=== PATIENT | female | born 1990 | race Caucasian/White ===

== ENCOUNTER 2021-10-26 10:23 | Emergency (ER) | payer OTHER ==
[~2021-10-26] VITALS: Ht 162.6 cm; Wt 92.7 kg
[2021-10-26 11:25] LABS: BASO # 0.02 K/mm3 (0.02-0.10); EOS # 0.31 K/mm3 (0.04-0.40); EOS % 2.8 % (1.0-5.0); HEMATOCRIT 46.6 % (37.0-47.0); HEMOGLOBIN 15.2 g/dL (12.5-16.0); LYMPH# 1.95 K/mm3 (1.50-4.00); MEAN CELL VOLUME 87 fl (78-100); MEAN CORPUSCULAR HEMOGLOBIN 28 pg (27-31); MEAN CORPUSCULAR HGB CONC 33 g/dL (33-37); MEAN PLATELET VOLUME 9.7 fl (7.4-10.4); MONO # 0.94 K/mm3 (0.20-0.80); NEU # 7.85 K/mm3 (1.40-6.50); PLATELET COUNT 303 K/mm3 (130-400); RED BLOOD COUNT 5.37 M/mm3 (4.10-5.30); WHITE BLOOD COUNT 11.1 K/mm3 (4.8-10.8)
[2021-10-26 11:36] LABS: ALBUMIN 4.3 g/dL (3.5-5.0)
[2021-10-26 11:39] LABS: TOTAL PROTEIN 8.2 g/dL (6.4-8.3)
[2021-10-26 11:41] LABS: TOTAL BILIRUBIN 0.3 mg/dL (0.2-1.2)
[2021-10-26 12:38] LABS: PH-URINE 6.5 (5.0 - 8.0); URINE APPEARANCE CLEAR; URINE BILIRUBIN NEGATIVE (NEGATIVE); URINE BLOOD NEGATIVE (NEGATIVE); URINE COLOR YELLOW; URINE GLUCOSE NEGATIVE (NEGATIVE); URINE KETONE NEGATIVE (NEGATIVE); URINE LEUKOCYTE ESTERASE NEGATIVE (NEGATIVE); URINE NITRATE NEGATIVE (NEGATIVE); URINE PROTEIN(semi-quant) TRACE (NEGATIVE); URINE UROBILINOGEN NORMAL (NORMAL); URINE WBC 0-1 /hpf (0-3)
[2021-10-26 14:06] VITALS: BP 125/80
== END 2021-10-26 14:00 | disposition home or self-care (01) ==
LOC: ED 10:23
PROVIDERS: Nurse Practitioner
DX: R10.9 Unspecified abdominal pain (principal); Z88.5 Allergy status to narcotic agent; Z20.822 Contact with and (suspected) exposure to COVID-19; Z32.02 Encounter for pregnancy test, result negative; Z28.310 Unvaccinated for COVID-19
CPT/HCPCS: J1885; J2405; J3010; J7030; Q9967